=== PATIENT | male | born 1935 | race Caucasian/White ===

== ENCOUNTER 2023-06-10 14:20 | Inpatient (IN) | payer MEDICARE, OTHER ==
[~2023-06-10 14:20] MED LIST: Iopamidol-370 76% 500 ML MDV (1 ML CHARGE) ONE
[2023-06-10 15:03] LABS: #Monocytes 0.7 thou/uL (0.11-0.59); #Neutrophils 8.5 thou/uL (1.40-6.50); %Basophils 0.1 % (0.0-1.0); %Eosinophils 0.1 % (0.0-10.0); %Lymphocytes 10.2 % (21.0-51.0); %Monocytes 6.7 % (0.0-10.0); %Neutrophils 82.5 % (42.0-75.0); Hematocrit 33.6 % (42.0-52.0); Mean Corpuscular HGB CONC 32.7 g/dL (32.0-36.0); Mean Corpuscular Hemoglobin 33.2 pg (27.0-31.0); Mean Corpuscular Volume 101.5 fl (78.0-98.0); Platelet Count 192 10x3/uL (130-400); RBC Distribution Width 12.2 % (11.5-14.5); Red Blood Cell (RBC) Count 3.31 mill/uL (4.70-6.10); White Blood Cell (WBC) Count 10.4 10x3/uL (4.8-10.8)
[2023-06-10 15:13] LABS: INR-International Normal Ratio 1.2; PTT 29.3 sec (22.9-36.1); Prothrombin Time 14.8 sec (12.0-14.7)
[2023-06-10 15:15] LABS: ALT (SGPT) 24 U/L (8-55); AST (SGOT) 31 U/L (5-34); Albumin 4.1 g/dL (3.4-4.8); Alkaline Phosphatase 66 U/L (40-110); Anion Gap 13 mmol/L (10-20); BUN (Urea Nitrogen) 39 mg/dL (8.4-25.7); Bilirubin, Total 1.2 mg/dL (0.2-1.2); Calc. Creatinine Clearance 0 mL/min (70-130); Calcium 8.9 mg/dL (7.8-10.44); Carbon Dioxide 20 mmol/L (23-31); Chloride 110 mmol/L (98-107); Estimated GFR 31; Globulin 2.9 g/dL (2.4-3.5); Glucose 137 mg/dL (83-110); Potassium 3.7 mmol/L (3.5-5.1); Sodium 139 mmol/L (136-145)
[2023-06-10 16:02] LABS: Bacteria/HPF None Seen HPF (None Seen); Bilirubin Negative (Negative); Blood, Urine 2+ (Negative); CAUTI Indications for Culture Dysuria,urgency,freq; Clarity Clear (Clear); Glucose, Urine (Dipstick) Normal (Negative); Ketone, Urine Negative (Negative); Leukocyte Negative Leu/uL (Negative); Nitrite Negative (Negative); Protein, Urine (Dipstick) Negative (Neg-Trace); Specific Gravity, Urine 1.015 (1.002-1.036); Squamous Epithelial None Seen HPF (0-3); Urobilinogen Normal mg/dL (Less than 2); WBC/HPF None Seen HPF (0-3); pH, Urine 5.5 (5.0-9.0)
[2023-06-10 16:04] LABS: Urine Culture Reflex No No
[2023-06-10] MEDS ORDERED: Ondansetron PF 4 MG/2 ML Vial ONE (16:09)
[2023-06-10] MEDS ORDERED: Morphine 4 MG/ML VIAL ONE (16:09)
[2023-06-10 17:30] LABS: Troponin I Less than 0.010 ng/mL (< 0.028)
[2023-06-10] MEDS ORDERED: fentaNYL 50 mcg/mL 1 mL Vial ONE ×2 (20:07→20:43)
[2023-06-10] MEDS ORDERED: Lidocaine 1% PF 5 ML VIAL ONE (21:04)
[2023-06-10] MEDS ORDERED: Ondansetron ODT 4 MG TAB SL PRN (22:30)
[2023-06-10] MEDS ORDERED: Ondansetron PF 4 MG/2 ML Vial IVP PRN (22:30)
[2023-06-10] MEDS ORDERED: Acetaminophen 325 MG TAB PO PRN ×2 (22:30→22:58)
[2023-06-10 22:52] VITALS: BMI 28.6
[2023-06-10] MEDS ORDERED: HYDROcodone/Acetaminophen 5/325 mg Tablet PO PRN (22:58)
[2023-06-10] MEDS ORDERED: Acetaminophen 650 MG Suppository PR PRN (22:58)
[2023-06-11] MEDS: Furosemide 40 MG (4 mL) VIAL SLOW IVP SCH ×3 (00:23→05:54)
[2023-06-11] MEDS ORDERED: Furosemide 40 MG (4 mL) VIAL ONE ×2 (00:28→05:46)
[2023-06-11 01:07] LABS: Magnesium 2.5 mg/dL (1.6-2.6)
[2023-06-11 05:04] LABS: #Eosinphils 0.1 thou/uL (0.0-0.7); #Monocytes 1.3 thou/uL (0.11-0.59); #Neutrophils 6.7 thou/uL (1.40-6.50); %Basophils 0.4 % (0.0-1.0); %Eosinophils 0.7 % (0.0-10.0); %Lymphocytes 18.7 % (21.0-51.0); %Neutrophils 66.8 % (42.0-75.0); Hematocrit 30.9 % (42.0-52.0); Hemoglobin 10.4 g/dL (14.0-18.0); Mean Corpuscular HGB CONC 33.7 g/dL (32.0-36.0); Mean Corpuscular Hemoglobin 33.7 pg (27.0-31.0); Mean Platelet Volume 10.4 fL (7.4-10.4); Platelet Count 191 10x3/uL (130-400); RBC Distribution Width 12.5 % (11.5-14.5); Red Blood Cell (RBC) Count 3.09 mill/uL (4.70-6.10)
[2023-06-11 05:28] LABS: Anion Gap 11 mmol/L (10-20); BUN (Urea Nitrogen) 35 mg/dL (8.4-25.7); Calc. Creatinine Clearance 37 mL/min (70-130); Calcium 8.7 mg/dL (7.8-10.44); Carbon Dioxide 26 mmol/L (23-31); Chloride 108 mmol/L (98-107); Estimated GFR 35; Glucose 101 mg/dL (83-110); Iron 50 ug/dL (65-175); Iron Binding Capacity, Total 266 mcg/dL (261-462); Magnesium 2.4 mg/dL (1.6-2.6); Potassium 3.7 mmol/L (3.5-5.1); Sodium 141 mmol/L (136-145)
[2023-06-11 05:29] LABS: Iron 50 ug/dL (65-175); Iron Binding Capacity, Total 275 mcg/dL (261-462)
[2023-06-11 05:31] LABS: Hemoglobin A1c 5.6 % (4.0-6.0)
[2023-06-11 05:55] LABS: Ferritin 370.04 ng/mL (22-322); Thyroid Stimulating Hormone 2.5886 uIU/mL (0.35-4.94)
[2023-06-11] MEDS ORDERED: Famotidine 20 MG TAB PO SCH (09:00)
[2023-06-11] MEDS ORDERED: Sodium Chloride 0.65% Nasal 44 ML BOT EA NARE PRN (12:14)
[2023-06-11] MEDS: Metoprolol Tartrate 25 MG TAB PO SCH (20:14)
[2023-06-11] MEDS: Ipratropium/Albuterol 3 ML NEB NEB PRN (23:41)
[2023-06-12 05:50] LABS: #Eosinphils 0.2 thou/uL (0.0-0.7); #Monocytes 1.3 thou/uL (0.11-0.59); #Neutrophils 5.5 thou/uL (1.40-6.50); %Basophils 0.3 % (0.0-1.0); %Eosinophils 1.8 % (0.0-10.0); %Lymphocytes 25.6 % (21.0-51.0); %Monocytes 13.6 % (0.0-10.0); %Neutrophils 58.5 % (42.0-75.0); Hematocrit 31.5 % (42.0-52.0); Hemoglobin 10.6 g/dL (14.0-18.0); Mean Corpuscular HGB CONC 33.7 g/dL (32.0-36.0); Mean Corpuscular Hemoglobin 33.2 pg (27.0-31.0); Mean Corpuscular Volume 98.7 fl (78.0-98.0); Mean Platelet Volume 10.3 fL (7.4-10.4); Platelet Count 170 10x3/uL (130-400); RBC Distribution Width 12.1 % (11.5-14.5); Red Blood Cell (RBC) Count 3.19 mill/uL (4.70-6.10); White Blood Cell (WBC) Count 9.4 10x3/uL (4.8-10.8)
[2023-06-12 06:22] LABS: Anion Gap 11 mmol/L (10-20); BUN (Urea Nitrogen) 26 mg/dL (8.4-25.7); Calc. Creatinine Clearance 64 mL/min (70-130); Calcium 8.1 mg/dL (7.8-10.44); Carbon Dioxide 25 mmol/L (23-31); Chloride 108 mmol/L (98-107); Estimated GFR 70; Glucose 99 mg/dL (83-110); Potassium 3.2 mmol/L (3.5-5.1); Sodium 141 mmol/L (136-145)
[2023-06-12] MEDS: Potassium Chloride 20 MEQ TAB PO SCH (08:38)
[2023-06-12] MEDS: FLU VACC QS2023(65UP)/MF59C/PF 60 MCG/0.5 ML SYRINGE IM ONE (08:39)
[2023-06-12] MEDS: Furosemide 40 MG (4 mL) VIAL SLOW IVP SCH (08:39)
[2023-06-12] MEDS: Docusate 100 MG CAP PO PRN (18:16)
[2023-06-13] MEDS: Spironolactone 25 MG TAB PO SCH (08:18)
[2023-06-13 11:21] LABS: #Eosinphils 0.3 thou/uL (0.0-0.7); #Monocytes 1.4 thou/uL (0.11-0.59); %Basophils 0.3 % (0.0-1.0); %Lymphocytes 19.1 % (21.0-51.0); %Monocytes 14.3 % (0.0-10.0); Hematocrit 31.5 % (42.0-52.0); Hemoglobin 10.6 g/dL (14.0-18.0); Mean Corpuscular HGB CONC 33.7 g/dL (32.0-36.0); Mean Corpuscular Hemoglobin 33.4 pg (27.0-31.0); Mean Corpuscular Volume 99.4 fl (78.0-98.0); Mean Platelet Volume 11.4 fL (7.4-10.4); Platelet Count 173 10x3/uL (130-400); RBC Distribution Width 12.1 % (11.5-14.5); Red Blood Cell (RBC) Count 3.17 mill/uL (4.70-6.10); White Blood Cell (WBC) Count 9.5 10x3/uL (4.8-10.8)
[2023-06-13 11:46] LABS: ALT (SGPT) 26 U/L (8-55); AST (SGOT) 32 U/L (5-34); Albumin 3.4 g/dL (3.4-4.8); Alkaline Phosphatase 59 U/L (40-110); Anion Gap 11 mmol/L (10-20); BUN (Urea Nitrogen) 20 mg/dL (8.4-25.7); Bilirubin, Total 0.8 mg/dL (0.2-1.2); Calc. Creatinine Clearance 75 mL/min (70-130); Calcium 8.5 mg/dL (7.8-10.44); Carbon Dioxide 25 mmol/L (23-31); Chloride 106 mmol/L (98-107); Estimated GFR 84; Globulin 3.1 g/dL (2.4-3.5); Glucose 114 mg/dL (83-110); Potassium 3.8 mmol/L (3.5-5.1); Protein, Total 6.5 g/dL (5.8-8.1); Sodium 138 mmol/L (136-145)
[2023-06-13 11:54] LABS: Magnesium 1.8 mg/dL (1.6-2.6)
[2023-06-13 12:33] VITALS: TEMP 98.8
[2023-06-13 13:00] VITALS: BP 145/69
== END 2023-06-13 13:15 | disposition home or self-care (01) | DRG 378 ==
LOC: ERS 14:20 → ERHOLD 21:55 → 2NO 06-11 16:11
PROVIDERS: ADMIT Internal Medicine; ATTEND Internal Medicine
PROC: 0T9B30Z Drainage of Bladder with Drainage Device, Percutaneous Approach (ICD-10-PCS; principal; 2023-06-12)
DX: K62.5 Hemorrhage of anus and rectum (principal); I50.30 Unspecified diastolic (congestive) heart failure; N17.9 Acute kidney failure, unspecified; R33.9 Retention of urine, unspecified; I25.10 Atherosclerotic heart disease of native coronary artery without angina pectoris; I73.9 Peripheral vascular disease, unspecified; I16.0 Hypertensive urgency; D50.9 Iron deficiency anemia, unspecified; D63.8 Anemia in other chronic diseases classified elsewhere; I45.10 Unspecified right bundle-branch block; Z98.890 Other specified postprocedural states; Z95.1 Presence of aortocoronary bypass graft
CPT/HCPCS: 36415; 51702; 74177; 80048; 80053; 81001; 82607; 82728; 83036; 83540; 83550; 83605; 83735; 83880; 84443; 84484; 85025; 85610; 85730; 86850; 86900; 86901; 93005; 93306; 94640; 96374; 96375; 96376; J1940; J2270; J2405; J3010; J7620; Q9967

== ENCOUNTER 2023-06-14 19:03 | Inpatient (IN) | payer MEDICARE ==
[~2023-06-14 19:03] MED LIST changes: +Iopamidol 370 76% 100 ML VIAL ONE; -Iopamidol-370 76% 500 ML MDV (1 ML CHARGE) ONE
[2023-06-14 20:41] LABS: #Eosinphils 0.3 thou/uL (0.0-0.7); #Monocytes 1.2 thou/uL (0.11-0.59); %Basophils 0.4 % (0.0-1.0); %Lymphocytes 20.3 % (21.0-51.0); %Monocytes 11.4 % (0.0-10.0); %Neutrophils 64.4 % (42.0-75.0); Hematocrit 34.2 % (42.0-52.0); Hemoglobin 11.3 g/dL (14.0-18.0); Mean Corpuscular Hemoglobin 32.6 pg (27.0-31.0); Mean Corpuscular Volume 98.6 fl (78.0-98.0); Mean Platelet Volume 10.4 fL (7.4-10.4); Platelet Count 221 10x3/uL (130-400); RBC Distribution Width 11.9 % (11.5-14.5); Red Blood Cell (RBC) Count 3.47 mill/uL (4.70-6.10); White Blood Cell (WBC) Count 10.9 10x3/uL (4.8-10.8)
[2023-06-14 21:07] LABS: ALT (SGPT) 23 U/L (8-55); AST (SGOT) 21 U/L (5-34); Albumin 3.7 g/dL (3.4-4.8); Alkaline Phosphatase 58 U/L (40-110); Anion Gap 13 mmol/L (10-20); BUN (Urea Nitrogen) 19 mg/dL (8.4-25.7); Bilirubin, Total 0.8 mg/dL (0.2-1.2); Calc. Creatinine Clearance 0 mL/min (70-130); Calcium 8.9 mg/dL (7.8-10.44); Carbon Dioxide 21 mmol/L (23-31); Chloride 106 mmol/L (98-107); Estimated GFR 85; Glucose 96 mg/dL (83-110); Potassium 3.8 mmol/L (3.5-5.1); Protein, Total 6.7 g/dL (5.8-8.1); Sodium 136 mmol/L (136-145)
[2023-06-14 21:43] LABS: Troponin I 0.128 ng/mL (< 0.028)
[2023-06-14] MEDS ORDERED: Sodium Chloride 0.9% 100 ML ONE (21:47)
[2023-06-14] MEDS ORDERED: cefTRIAXone (ROCEPHIN) 2 GM VIAL ONE (21:47)
[2023-06-14 22:57] LABS: Bacteria/HPF None Seen HPF (None Seen); Bilirubin Negative (Negative); Blood, Urine 3+ (Negative); CAUTI Indications for Culture Fever or rigors; Clarity Turbid (Clear); Glucose, Urine (Dipstick) Normal (Negative); Ketone, Urine Negative (Negative); Leukocyte 75 Leu/uL (Negative); Nitrite Negative (Negative); Protein, Urine (Dipstick) 100 mg/dL (Neg-Trace); RBC/HPF Greater than 50 HPF (0-3); Specific Gravity, Urine 1.027 (1.002-1.036); Squamous Epithelial 0-3 HPF (0-3); Urobilinogen Normal mg/dL (Less than 2); pH, Urine 5.5 (5.0-9.0)
[2023-06-14 22:58] LABS: SARS-CoV-2 NAA Rapid Test Not Detected (NotDetected)
[2023-06-14 22:59] LABS: Urine Culture Reflex No No
[2023-06-15 01:14] LABS: Troponin I 0.095 ng/mL (< 0.028)
[2023-06-15] MEDS ORDERED: Enoxaparin 100 MG (1 mL) SYRINGE ONE (01:21)
[2023-06-15] MEDS ORDERED: Ondansetron PF 4 MG/2 ML Vial IVP PRN (01:37)
[2023-06-15] MEDS ORDERED: Senokot S 8.6-50 MG TAB PO PRN (01:37)
[2023-06-15] MEDS ORDERED: Ondansetron ODT 4 MG TAB PO PRN (01:37)
[2023-06-15] MEDS ORDERED: Acetaminophen 325 MG TAB PO PRN (01:37)
[2023-06-15 01:38] VITALS: BMI 28.2
[2023-06-15] MEDS ORDERED: Enoxaparin 100 MG (1 mL) SYRINGE SC SCH ×3 (02:00→21:00)
[2023-06-15 05:55] LABS: #Eosinphils 0.4 thou/uL (0.0-0.7); #Monocytes 1.1 thou/uL (0.11-0.59); #Neutrophils 5.5 thou/uL (1.40-6.50); %Basophils 0.3 % (0.0-1.0); %Eosinophils 4.7 % (0.0-10.0); %Lymphocytes 21.2 % (21.0-51.0); %Neutrophils 61.6 % (42.0-75.0); Hematocrit 31.1 % (42.0-52.0); Hemoglobin 10.2 g/dL (14.0-18.0); Mean Corpuscular HGB CONC 32.8 g/dL (32.0-36.0); Mean Corpuscular Hemoglobin 32.8 pg (27.0-31.0); Mean Platelet Volume 10.1 fL (7.4-10.4); Platelet Count 200 10x3/uL (130-400); RBC Distribution Width 11.9 % (11.5-14.5); Red Blood Cell (RBC) Count 3.11 mill/uL (4.70-6.10); White Blood Cell (WBC) Count 8.9 10x3/uL (4.8-10.8)
[2023-06-15 06:23] LABS: Anion Gap 10 mmol/L (10-20); BUN (Urea Nitrogen) 14 mg/dL (8.4-25.7); Calc. Creatinine Clearance 86 mL/min (70-130); Calcium 8.4 mg/dL (7.8-10.44); Carbon Dioxide 24 mmol/L (23-31); Chloride 107 mmol/L (98-107); Estimated GFR 87; Glucose 144 mg/dL (83-110); Potassium 3.3 mmol/L (3.5-5.1); Sodium 138 mmol/L (136-145)
[2023-06-15 06:27] LABS: Troponin I 0.198 ng/mL (< 0.028)
[2023-06-15] MEDS ORDERED: Metoprolol Tartrate 25 MG TAB ONE (10:24)
[2023-06-15] MEDS ORDERED: Famotidine 20 MG TAB ONE (10:24)
[2023-06-15] MEDS: Famotidine 20 MG TAB PO SCH (10:40)
[2023-06-15] MEDS: Metoprolol Tartrate 25 MG TAB PO SCH (10:40)
[2023-06-15] MEDS: Finasteride 5 MG TAB PO SCH (11:30)
[2023-06-15] MEDS: Spironolactone 25 MG TAB PO SCH (11:30)
[2023-06-15] MEDS: FLU VACC QS2023(65UP)/MF59C/PF 60 MCG/0.5 ML SYRINGE IM ONE (14:06)
[2023-06-15] MEDS ORDERED: Polyethylene Glycol 3350 17 GM Packet PO PRN (15:25)
[2023-06-15] MEDS: Enoxaparin 100 MG (1 mL) SYRINGE SC SCH (16:29)
[2023-06-15] MEDS: Potassium Chloride 20 MEQ TAB PO SCH (16:30)
[2023-06-15] MEDS: Guaifenesin DM 100-10/5 ML UDCUP PO PRN (20:06)
[2023-06-15] MEDS: Senokot S 8.6-50 MG TAB PO SCH (20:06)
[2023-06-15] MEDS: Atorvastatin Calcium 10 MG TAB PO SCH (20:06)
[2023-06-15] MEDS: cefTRIAXone\\ROCEPHIN 1 GM in Sodium Chloride 0.9% 100 ML IVPB SCH (21:03)
[2023-06-15] MEDS: Nystatin Powder 15 GM BOT TOP SCH (21:13)
[2023-06-16] MEDS: Enoxaparin 100 MG (1 mL) SYRINGE SC SCH (04:33)
[2023-06-16 06:01] LABS: #Eosinphils 0.4 thou/uL (0.0-0.7); #Monocytes 0.8 thou/uL (0.11-0.59); #Neutrophils 4.4 thou/uL (1.40-6.50); %Basophils 0.4 % (0.0-1.0); %Eosinophils 5.7 % (0.0-10.0); %Lymphocytes 23.4 % (21.0-51.0); %Monocytes 10.9 % (0.0-10.0); %Neutrophils 59.3 % (42.0-75.0); Hematocrit 30.3 % (42.0-52.0); Hemoglobin 10.1 g/dL (14.0-18.0); Mean Corpuscular HGB CONC 33.3 g/dL (32.0-36.0); Mean Corpuscular Hemoglobin 32.7 pg (27.0-31.0); Mean Corpuscular Volume 98.1 fl (78.0-98.0); Mean Platelet Volume 10.3 fL (7.4-10.4); Platelet Count 204 10x3/uL (130-400); RBC Distribution Width 11.8 % (11.5-14.5); Red Blood Cell (RBC) Count 3.09 mill/uL (4.70-6.10); White Blood Cell (WBC) Count 7.4 10x3/uL (4.8-10.8)
[2023-06-16 06:26] LABS: Anion Gap 10 mmol/L (10-20); BUN (Urea Nitrogen) 14 mg/dL (8.4-25.7); Calc. Creatinine Clearance 95 mL/min (70-130); Calcium 8.5 mg/dL (7.8-10.44); Carbon Dioxide 24 mmol/L (23-31); Chloride 108 mmol/L (98-107); Estimated GFR 90; Glucose 118 mg/dL (83-110); Magnesium 1.7 mg/dL (1.6-2.6); Potassium 3.8 mmol/L (3.5-5.1); Sodium 138 mmol/L (136-145)
[2023-06-16 07:24] LABS: Magnesium 1.7 mg/dL (1.6-2.6)
[2023-06-16 07:42] LABS: Troponin I 0.286 ng/mL (< 0.028)
[2023-06-16] MEDS ORDERED: Enoxaparin 100 MG (1 mL) SYRINGE SC SCH (09:00)
[2023-06-16 12:29] LABS: CEA, Serum 2.02 ng/mL (< or = 5.0)
[2023-06-16 12:46] LABS: PSA-Symptomatic (DIAGNOSTIC) 10.585 ng/mL (0-4.0)
[2023-06-16] MEDS: Magnesium 2 GM/50 ML(in water) 2 GM in Premix 1 BAG IVPB SCH (13:27)
[2023-06-17] MEDS: Apixaban 5 MG TAB PO SCH (18:29)
[2023-06-19 11:37] VITALS: TEMP 97.5
[2023-06-19 12:21] VITALS: BP 151/69
[2023-06-19 20:36] LABS: Coccidioides ABS (DID) Negative (Neg:<1:2)
[2023-06-20 13:38] LABS: Blastomyces Antibodies Negative (Neg:<1:1)
[2023-06-20 18:36] LABS: QuantiFERON-TB Gold Plus Negative (Negative)
== END 2023-06-19 13:50 | disposition home or self-care (01) | DRG 176 ==
LOC: ERS 19:03 → ERHOLD 06-15 01:05 → 2NO 06-15 13:14
PROVIDERS: ADMIT Student in an Organized Health Care Education/Training Program; ATTEND Hospitalist
DX: I26.99 Other pulmonary embolism without acute cor pulmonale (principal); I47.19 Other supraventricular tachycardia; R33.9 Retention of urine, unspecified; I25.10 Atherosclerotic heart disease of native coronary artery without angina pectoris; C61 Malignant neoplasm of prostate; R91.8 Other nonspecific abnormal finding of lung field; I10 Essential (primary) hypertension; E78.5 Hyperlipidemia, unspecified; R31.9 Hematuria, unspecified; Z92.3 Personal history of irradiation; Z98.890 Other specified postprocedural states; Z95.1 Presence of aortocoronary bypass graft; Z11.52 Encounter for screening for COVID-19
CPT/HCPCS: 36415; 71045; 71275; 80048; 80053; 81001; 82378; 83605; 83690; 83735; 83880; 84153; 84484; 85025; 85379; 86304; 86480; 86612; 86635; 87040; 87385; 87899; 93005; 93010; 93970; 96365; J0696; J1650; J3475; J3490; Q9967

== ENCOUNTER 2023-10-14 16:45 | Emergency (ER) | payer MEDICARE ==
[~2023-10-14 16:45] MED LIST changes: -Iopamidol 370 76% 100 ML VIAL ONE; +Iopamidol-370 76% 500 ML MDV (1 ML CHARGE) ONE
[2023-10-14 19:00] LABS: #Basophils Less than 0.03 10x3/uL (0.0-0.2); #Eosinphils Less than 0.03 10x3/uL (0.0-0.7); %Basophils 0.2 % (0.0-1.0); %Eosinophils 0.1 % (0.0-10.0); %Lymphocytes 5.6 % (21.0-51.0); %Monocytes 4.8 % (0.0-10.0); %Neutrophils 88.9 % (42.0-75.0); Hematocrit 36.9 % (42.0-52.0); Mean Corpuscular HGB CONC 32.5 g/dL (32.0-36.0); Mean Corpuscular Hemoglobin 30.8 pg (27.0-31.0); Mean Corpuscular Volume 94.9 fL (78.0-98.0); Mean Platelet Volume 9.3 fL (7.4-10.4); Platelet Count 261 10x3/uL (130-400); RBC Distribution Width 13.9 % (11.5-14.5); Red Blood Cell (RBC) Count 3.89 mill/uL (4.70-6.10)
[2023-10-14 19:13] LABS: INR-International Normal Ratio 1.1; Prothrombin Time 14.4 sec (12.0-14.7)
[2023-10-14 19:14] LABS: ALT (SGPT) 16 U/L (8-55); AST (SGOT) 21 U/L (5-34); Albumin 3.2 g/dL (3.4-4.8); Alkaline Phosphatase 70 U/L (40-110); Anion Gap 13 mmol/L (10-20); BUN (Urea Nitrogen) 17 mg/dL (8.4-25.7); Bilirubin, Total 0.7 mg/dL (0.2-1.2); Calc. Creatinine Clearance 0 mL/min (70-130); Carbon Dioxide 22 mmol/L (23-31); Chloride 106 mmol/L (98-107); Estimated GFR 74; Globulin 3.1 g/dL (2.4-3.5); Glucose 141 mg/dL (83-110); PTT 27.4 sec (22.9-36.1); Potassium 3.8 mmol/L (3.5-5.1); Protein, Total 6.3 g/dL (5.8-8.1); Sodium 137 mmol/L (136-145)
[2023-10-14] MEDS ORDERED: Ciprofloxacin 500 MG TAB ONE (22:32)
[2023-10-14] MEDS ORDERED: metroNIDAZOLE 250 MG TAB ONE (22:33)
[2023-10-14] MEDS ORDERED: Pantoprazole 40 MG VIAL ONE (22:35)
== END 2023-10-14 23:09 | disposition home or self-care (01) ==
LOC: ERS 16:45
DX: A09 Infectious gastroenteritis and colitis, unspecified (principal)
CPT/HCPCS: 74177; 80053; 85025; 85610; 85730; 93005; 96361; 96374; 99284; C9113; 36415; 82274; Q9967

== ENCOUNTER 2024-04-08 12:30 | Outpatient (CLI) | payer MEDICARE | END 2024-04-08 12:31 | disposition home or self-care (01) | LOC: PET 12:30 | PROVIDERS: ATTEND Internal Medicine Hematology & Oncology | DX: C61 Malignant neoplasm of prostate (principal); C79.51 Secondary malignant neoplasm of bone; R59.0 Localized enlarged lymph nodes; R91.8 Other nonspecific abnormal finding of lung field | CPT/HCPCS: 78815; A9552; A9595 ==

== ENCOUNTER 2024-12-19 12:32 | Inpatient (IN) | payer MEDICARE ==
[2024-12-19 13:01] LABS: #Basophils 0.03 10x3/uL (0.0-0.2); #Eosinophils 0.08 10x3/uL (0.0-0.7); #Monocytes 0.75 10x3/uL (0.11-0.59); #Neutrophils 6.36 10x3/uL (1.40-6.50); %Basophils 0.4 % (0.0-1.0); %Eosinophils 0.9 % (0.0-10.0); %Lymphocytes 14.1 % (21.0-51.0); %Monocytes 8.9 % (0.0-10.0); %Neutrophils 75.5 % (42.0-75.0); Hematocrit 37.2 % (42.0-52.0); Hemoglobin 12.6 g/dL (14.0-18.0); Mean Corpuscular Hemoglobin 30.5 pg (27.0-31.0); Mean Corpuscular Volume 90.1 fL (78.0-98.0); Platelet Count 319 10x3/uL (130-400); Red Blood Cell (RBC) Count 4.13 mill/uL (4.70-6.10); White Blood Cell (WBC) Count 8.43 10x3/uL (4.8-10.8)
[2024-12-19] MEDS ORDERED: Magnesium 2 GM/50 ML BAG (IN WATER) ONE (13:10)
[2024-12-19 13:18] LABS: ALT (SGPT) 19 U/L (Less than 45); AST (SGOT) 35 U/L (11-34); Albumin 3.8 g/dL (3.1-4.5); Alkaline Phosphatase 78 U/L (40-110); Anion Gap 14 mmol/L (10-20); BUN (Urea Nitrogen) 19 mg/dL (8.4-25.7); Bilirubin, Total 0.7 mg/dL (0.3-1.2); Calc. Creatinine Clearance 0 mL/min (70-130); Calcium 9.1 mg/dL (7.8-10.44); Carbon Dioxide 25 mmol/L (23-31); Chloride 90 mmol/L (98-107); Globulin 3.2 g/dL (2.4-3.5); Glucose 118 mg/dL (83-110); Magnesium 2.0 mg/dL (1.6-2.6); Potassium 5.6 mmol/L (3.5-5.1); Sodium 123 mmol/L (136-145)
[2024-12-19] MEDS ORDERED: Cefepime 2 GM VIAL ONE (13:49)
[2024-12-19] MEDS ORDERED: Melatonin 3 MG TAB PO PRN (15:37)
[2024-12-19] MEDS ORDERED: Senokot S 8.6-50 MG TAB PO PRN (15:37)
[2024-12-19] MEDS ORDERED: Ondansetron PF 4 MG/2 ML Vial IVP PRN (15:37)
[2024-12-19] MEDS ORDERED: Acetaminophen 325 MG TAB PO PRN (15:37)
[2024-12-19] MEDS ORDERED: Calcium Carbonate 500 MG ChewTAB PO PRN (15:37)
[2024-12-19 16:37] LABS: Actual Bicarbonate (HCO3v) 27.0 mEq/L (22-28); Base Excess 0.3 mEq/L (-2.0 to +3.0); Calcium, Ionized (venous) 1.10 mmol/L (1.16-1.32); Chloride (VBG) 88 mmol/L (98-106); Hematocrit-VBG 41 % (42.0-52.0); Hemoglobin (Hb) 14.1 g/dL (12.6-17.4); Potassium (VBG) 5.56 mmol/L (3.70-5.30); Sodium 124 mmol/L (133-146)
[2024-12-19 16:47] LABS: Osmolality, Serum 266 mOsm/kg (280-301)
[2024-12-19] MEDS ORDERED: Guaifenesin DM 100-10/5 ML UDCUP PO PRN (18:46)
[2024-12-19 19:32] LABS: Anion Gap 13 mmol/L (10-20); BUN (Urea Nitrogen) 15 mg/dL (8.4-25.7); Calc. Creatinine Clearance 131 mL/min (70-130); Calcium 8.3 mg/dL (7.8-10.44); Carbon Dioxide 24 mmol/L (23-31); Chloride 90 mmol/L (98-107); Glucose 148 mg/dL (83-110); Potassium 4.5 mmol/L (3.5-5.1); Sodium 122 mmol/L (136-145)
[2024-12-19] MEDS: VANCOMYCIN 1.75 GM/350 ML Premix BAG IVPB SCH (20:08)
[2024-12-19] MEDS: Apixaban 2.5 MG TAB PO SCH (20:57)
[2024-12-19] MEDS ORDERED: Famotidine 20 MG TAB PO SCH (21:00)
[2024-12-19] MEDS: Furosemide 40 MG (4 mL) VIAL SLOW IVP SCH (21:11)
[2024-12-19] MEDS: QUEtiapine 25 MG TAB PO SCH (21:12)
[2024-12-19] MEDS: Famotidine 20 MG TAB PO SCH (21:13)
[2024-12-19] MEDS: LOKELMA 10 GM PACKET PO SCH (21:18)
[2024-12-20 04:47] LABS: #Basophils Less than 0.03 10x3/uL (0.0-0.2); #Eosinophils Less than 0.03 10x3/uL (0.0-0.7); #Monocytes 0.94 10x3/uL (0.11-0.59); #Neutrophils 4.95 10x3/uL (1.40-6.50); %Basophils 0.0 % (0.0-1.0); %Eosinophils 0.0 % (0.0-10.0); %Lymphocytes 15.1 % (21.0-51.0); %Monocytes 13.5 % (0.0-10.0); %Neutrophils 71.3 % (42.0-75.0); Hematocrit 34.5 % (42.0-52.0); Hemoglobin 12.0 g/dL (14.0-18.0); Mean Corpuscular Hemoglobin 30.7 pg (27.0-31.0); Mean Corpuscular Volume 88.2 fL (78.0-98.0); Platelet Count 339 10x3/uL (130-400); Red Blood Cell (RBC) Count 3.91 mill/uL (4.70-6.10); White Blood Cell (WBC) Count 6.95 10x3/uL (4.8-10.8)
[2024-12-20 05:06] LABS: Anion Gap 12 mmol/L (10-20); BUN (Urea Nitrogen) 13 mg/dL (8.4-25.7); Calc. Creatinine Clearance 122 mL/min (70-130); Calcium 8.4 mg/dL (7.8-10.44); Carbon Dioxide 26 mmol/L (23-31); Chloride 92 mmol/L (98-107); Glucose 104 mg/dL (83-110); Potassium 4.5 mmol/L (3.5-5.1); Sodium 125 mmol/L (136-145)
[2024-12-20] MEDS: prednisoLONE 15 MG/5 ML UDCUP PO SCH ×2 (10:50→11:29)
[2024-12-20] MEDS: Torsemide 20 MG TAB PO SCH ×3 (10:50→15:45)
[2024-12-20] MEDS ORDERED: ALPRAZolam 0.25 MG TAB PO PRN (11:08)
[2024-12-20] MEDS: prednisoLONE 10 MG ODT TAB PO SCH (11:27)
[2024-12-20] MEDS ORDERED: ALPRAZolam 0.25 MG TAB PO SCH (13:00)
[2024-12-20] MEDS: QUEtiapine 25 MG TAB PO SCH (21:33)
[2024-12-21 08:03] LABS: Albumin 3.8 g/dL (3.1-4.5); Anion Gap 14 mmol/L (10-20); BUN (Urea Nitrogen) 20 mg/dL (8.4-25.7); BUN/Creatinine Ratio 40.00; Calc. Creatinine Clearance 105 mL/min (70-130); Calcium 8.5 mg/dL (7.8-10.44); Carbon Dioxide 32 mmol/L (23-31); Chloride 89 mmol/L (98-107); Glucose 131 mg/dL (83-110); Potassium 4.1 mmol/L (3.5-5.1); Sodium 131 mmol/L (136-145)
[2024-12-22 03:48] VITALS: BMI 20.1
[2024-12-22 09:17] LABS: #Basophils Less than 0.03 10x3/uL (0.0-0.2); #Eosinophils Less than 0.03 10x3/uL (0.0-0.7); #Monocytes 0.46 10x3/uL (0.11-0.59); #Neutrophils 13.33 10x3/uL (1.40-6.50); %Basophils 0.1 % (0.0-1.0); %Eosinophils 0.0 % (0.0-10.0); %Lymphocytes 5.5 % (21.0-51.0); %Monocytes 3.1 % (0.0-10.0); %Neutrophils 90.7 % (42.0-75.0); Hematocrit 37.7 % (42.0-52.0); Hemoglobin 12.7 g/dL (14.0-18.0); Mean Corpuscular Hemoglobin 30.7 pg (27.0-31.0); Mean Corpuscular Volume 91.1 fL (78.0-98.0); Platelet Count 349 10x3/uL (130-400); Red Blood Cell (RBC) Count 4.14 mill/uL (4.70-6.10); White Blood Cell (WBC) Count 14.70 10x3/uL (4.8-10.8)
[2024-12-22 09:38] LABS: Anion Gap 13 mmol/L (10-20); BUN (Urea Nitrogen) 21 mg/dL (8.4-25.7); Calc. Creatinine Clearance 103 mL/min (70-130); Calcium 8.7 mg/dL (7.8-10.44); Carbon Dioxide 30 mmol/L (23-31); Chloride 92 mmol/L (98-107); Glucose 159 mg/dL (83-110); Potassium 4.1 mmol/L (3.5-5.1); Sodium 131 mmol/L (136-145)
[2024-12-22 11:48] VITALS: BP 121/64; TEMP 97.4
== END 2024-12-22 14:45 | disposition home or self-care (01) | DRG 180 ==
LOC: ERS 12:32 → 2NO 15:37
PROVIDERS: ADMIT Internal Medicine; ATTEND Hospitalist
PROC: 3E03329 Introduction of Other Anti-infective into Peripheral Vein, Percutaneous Approach (ICD-10-PCS; 2024-12-19)
PROC: 5A0935A Assistance with Respiratory Ventilation, Less than 24 Consecutive Hours, High Flow/Velocity Cannula (ICD-10-PCS; principal; 2024-12-20)
DX: C78.00 Secondary malignant neoplasm of unspecified lung (principal); J96.01 Acute respiratory failure with hypoxia; E22.2 Syndrome of inappropriate secretion of antidiuretic hormone; N17.9 Acute kidney failure, unspecified; J90 Pleural effusion, not elsewhere classified; E87.5 Hyperkalemia; I10 Essential (primary) hypertension; E78.00 Pure hypercholesterolemia, unspecified; Z86.711 Personal history of pulmonary embolism; Z79.01 Long term (current) use of anticoagulants; Z95.1 Presence of aortocoronary bypass graft; C61 Malignant neoplasm of prostate; Z92.3 Personal history of irradiation; Z98.890 Other specified postprocedural states; I25.10 Atherosclerotic heart disease of native coronary artery without angina pectoris; G47.00 Insomnia, unspecified; R91.1 Solitary pulmonary nodule; Z79.899 Other long term (current) drug therapy
CPT/HCPCS: 36415; 71045; 71275; 80048; 80053; 80069; 82805; 83605; 83735; 83880; 83930; 84484; 85025; 93005; 94640; 96365; 96366; 96368; J0692; J1940; J2060; J2919; J3375; J3475; J7510; J7620; J7626; Q0162; Q9967